=== PATIENT | female | born 1985 | race African-American/Black ===

== ENCOUNTER 2018-08-15 06:54 | Observation (INO) | payer MEDICAID, OTHER ==
[~2018-08-15] VITALS: Ht 170.2 cm; Wt 79.4 kg
[2018-08-15] MEDS ORDERED: PNV1TABL50 MT (07:03)
[2018-08-15] MEDS ORDERED: LACTATED RINGERS 1,000 ML IV SCH (08:00)
[2018-08-15] MEDS ORDERED: CEFAZOLIN 2,000 MG in DEXT 5% WATER 100 ML IV NR (08:30)
[2018-08-15 08:35] LABS: CLARITY URINE TURBID (CLEAR); COLOR URINE YELLOW (YELLOW); KETONES URINE NEGATIVE (NEGATIVE); LEUKOCYTE ESTERASE URINE 3+ (NEGATIVE); NITRITE URINE NEGATIVE (NEGATIVE); OCCULT BLOOD URINE TRACE (NEGATIVE); PROTEIN URINE 1+ (NEGATIVE); SPECIFIC GRAVITY URINE 1.019 (1.005-1.030); UROBILINOGEN URINE 0.2 E.U./dL (0.2-1.0)
[2018-08-15] MEDS ORDERED: TERBUTALINE SULFATE 1MG/ML VIAL SUBCUT PRN (09:00)
== END 2018-08-15 09:30 | disposition home or self-care (01) ==
LOC: 8 EST LDRP 06:54
PROVIDERS: ADMIT Obstetrics & Gynecology; ATTEND Obstetrics & Gynecology
DX: O26.893 Other specified pregnancy related conditions, third trimester (principal); R10.30 Lower abdominal pain, unspecified; Z3A.32 32 weeks gestation of pregnancy
CPT/HCPCS: 81003; 87086; 96365; 99281; G0378; J0690; J7060; 96360; 96361

== ENCOUNTER 2018-10-01 07:26 | Inpatient (IN) | payer OTHER ==
[~2018-10-01] VITALS: Ht 170.2 cm; Wt 79.4 kg
[~2018-10-01 07:26] MED LIST: PNV1TABL50 MT
[2018-10-01] MEDS ORDERED: DEXT 5%/LR + PITOCIN 20UNITS/L 1,000 ML IV SCH ×2 (07:31→11:28)
[2018-10-01] MEDS ORDERED: NALOXONE HCL 0.4 MG/ML 1ML VIAL IM PRN (07:45)
[2018-10-01] MEDS ORDERED: LIDOCAINE HCL 1% 20ML VIAL (Pyxis) INJ INFIL PRN (07:45)
[2018-10-01] MEDS ORDERED: MISOPROSTOL 100MCG TABLET VG PRN (07:45)
[2018-10-01] MEDS ORDERED: BUTORPHANOL TARTRATE 2 MG/ML VIAL IV PRN (07:45)
[2018-10-01] MEDS ORDERED: METHYLERGONOVINE MALEATE 0.2 MG/ML IM PRN (07:45)
[2018-10-01 08:18] LABS: BASOPHILS % 0.5 % (0.0-2.0); EOSINOPHILS % 0.2 % (0.0-5.0); HEMATOCRIT. 34.4 % (36.0-48.0); HEMOGLOBIN. 11.5 g/dL (12.0-16.0); LYMPHOCYTES % 10.6 % (20.0-50.0); MEAN CORPUSCULAR HEMOGLOBIN 32.7 pg (28.0-32.0); MEAN CORPUSCULAR VOLUME 97.9 fL (81.0-99.0); MEAN PLATELET VOLUME 9.3 fl (7.4-10.4); MONOCYTES % 6.7 % (2.0-8.0); PLATELET 289 x1000/uL (130-400); RED BLOOD CELL COUNT 3.51 mill/uL (4.2-5.4); RED CELL DISTRIBUTION WIDTH 13.4 % (11.6-14.6)
[2018-10-01 08:21] LABS: CHLORIDE 108 mEq/L (98-107)
[2018-10-01 08:24] LABS: INR 0.9; PARTIAL THROMBOPLASTIN TIME 25.3 sec (23.4-31.0); PROTHROMBIN TIME 9.1 sec (9.6-11.0)
[2018-10-01 08:28] LABS: CLARITY URINE CLOUDY (CLEAR); COLOR URINE YELLOW (YELLOW); KETONES URINE NEGATIVE (NEGATIVE); LEUKOCYTE ESTERASE URINE 3+ (NEGATIVE); NITRITE URINE NEGATIVE (NEGATIVE); OCCULT BLOOD URINE 2+ (NEGATIVE); PH URINE 7.5 (4.5-8.0); PROTEIN URINE NEGATIVE (NEGATIVE); SPECIFIC GRAVITY URINE 1.012 (1.005-1.030); UROBILINOGEN URINE 0.2 E.U./dL (0.2-1.0)
[2018-10-01] MEDS ORDERED: PENICILLIN G POTASSIUM 5 MMU in DEXT 5% WATER 100 ML IV SCH (09:00)
[2018-10-01] MEDS ORDERED: MORPHINE SULFATE/PF 1MG/ML 10ML AMP EPI SCH (09:00)
[2018-10-01 09:20] LABS: *BARBITURATES SCREEN URINE NEGATIVE (NEGATIVE); *BENZODIAZEPINES SCREEN URINE NEGATIVE (NEGATIVE); *COCAINE SCREEN URINE NEGATIVE (NEGATIVE)
[2018-10-01 09:21] LABS: METHADONE URINE SCREEN NEGATIVE (NEGATIVE); OPIATES URINE SCREEN NEGATIVE (NEGATIVE); PHENCYCLIDINE URINE SCREEN NEGATIVE (NEGATIVE)
[2018-10-01 09:23] LABS: *AMPHETAMINES SCREEN URINE NEGATIVE (NEGATIVE)
[2018-10-01 09:59] LABS: CANNABINOID URINE SCREEN PRESUMTIVE POSITIVE (NEGATIVE)
[2018-10-01 10:02] LABS: BG BASE EXCESS -9.5 mmol/L (-2.0-2.0); BG FRACTION INSPIRED OXYGEN 21; BG HCO3 ACT 18.2 mmol/L (22.0-26.0); BG OXYGEN SATURATION 54.3 % (92.0-98.5); BG PCO2 46.2 mmHg (35.0-45.0); BG PH 7.214 (7.350-7.450); BG PO2 34.3 mmHg (75.0-100.0); BG SAMPLE SITE LEFT RADIAL; BG VENT MODE ROOM AIR
[2018-10-01] MEDS ORDERED: MEPERIDINE HCL/PF 25MG/ML CPJ IV PRN (11:00)
[2018-10-01] MEDS ORDERED: ONDANSETRON HCL 4MG/2ML INJ IV PRN ×2 (11:00→11:30)
[2018-10-01] MEDS ORDERED: HYDROMORPHONE HCL/PF 2MG/ML CPJ IV PRN (11:00)
[2018-10-01 11:26] LABS: HEPATITIS B SURFACE ANTIGEN NEGATIVE
[2018-10-01] MEDS ORDERED: BISACODYL 10MG SUPP PR PRN (11:30)
[2018-10-01] MEDS ORDERED: LANOLIN OINT 0.25 GM TUBE TOP PRN (11:30)
[2018-10-01] MEDS ORDERED: IBUPROFEN 400MG TABLET PO PRN (11:30)
[2018-10-01] MEDS ORDERED: RHO(D) IMMUNE GLOBULIN 300 MCG/SYR IM PRN (11:30)
[2018-10-01] MEDS ORDERED: PENICILLIN G POTASSIUM 2.5 MMU in DEXTROSE 5% WATER 50 ML IV SCH (13:00)
[2018-10-01 13:05] VITALS: BP 104/62
[2018-10-01] MEDS ORDERED: KETOROLAC 30MG/ML VIAL IV PRN (13:15)
[2018-10-01 13:35] VITALS: BP 98/58
[2018-10-01 14:06] VITALS: BP 116/50
[2018-10-01] MEDS ORDERED: FENTANYL CITRATE/PF 50MCG/ML 2ML VIAL ONE (14:36)
[2018-10-01 19:40] VITALS: BP 113/57
[2018-10-01] MEDS ORDERED: MORPHINE SULFATE 4 MG/ML CPJ (NOT FOR IM USE) IV PRN (21:45)
[2018-10-01 22:40] VITALS: BP 116/65
[2018-10-02 02:06] VITALS: BP 111/60
[2018-10-02] MEDS: KETOROLAC 30MG/ML VIAL IV PRN ×2 (02:13→09:21)
[2018-10-02 05:00] VITALS: BP 112/65
[2018-10-02 07:18] LABS: BASOPHILS % 0.3 % (0.0-2.0); EOSINOPHILS % 0.1 % (0.0-5.0); HEMATOCRIT. 25.7 % (36.0-48.0); HEMOGLOBIN. 8.7 g/dL (12.0-16.0); LYMPHOCYTES % 8.6 % (20.0-50.0); MEAN CORPUSCULAR HEMOGLOBIN 33.2 pg (28.0-32.0); MEAN CORPUSCULAR VOLUME 97.7 fL (81.0-99.0); MEAN PLATELET VOLUME 8.8 fl (7.4-10.4); MONOCYTES % 5.8 % (2.0-8.0); NEUTROPHILS % 85.2 % (40.0-76.0); PLATELET 248 x1000/uL (130-400); RED BLOOD CELL COUNT 2.63 mill/uL (4.2-5.4); RED CELL DISTRIBUTION WIDTH 13.6 % (11.6-14.6)
[2018-10-02 09:00] VITALS: BP 111/70
[2018-10-02] MEDS: PRENATAL VIT/FE FUMARATE/FA TABLET PO SCH (09:00)
[2018-10-02] MEDS: IBUPROFEN 800MG TABLET PO PRN ×2 (14:13→20:23)
[2018-10-02 16:26] VITALS: BP 124/68
[2018-10-02 20:20] VITALS: BP 121/67
[2018-10-03] MEDS: HYDROCODONE/ACETAMINOPHEN 5/325MG TABLET PO PRN ×4 (00:21→15:30)
[2018-10-03 04:10] VITALS: BP 128/62
[2018-10-03 08:00] VITALS: BP 109/66
[2018-10-03] MEDS: PRENATAL VIT/FE FUMARATE/FA TABLET PO SCH (10:26)
[2018-10-06 13:10] LABS: CANNABINOID CONFIRMATION URINE Positive (.)
== END 2018-10-03 16:00 | disposition home or self-care (01) | DRG 540 ==
LOC: UNDOADMOB 07:26 → 8 EST LDRP 07:26 → PREOBSVTOIN 07:29 → 8EST NSY 07:30 → 8 EST LDRP 07:53 → 8EST 12:40
PROVIDERS: ADMIT Obstetrics & Gynecology; ATTEND Obstetrics & Gynecology
PROC: 10D00Z1 Extraction of Products of Conception, Low, Open Approach (ICD-10-PCS; principal; 2018-10-01)
DX: O76 Abnormality in fetal heart rate and rhythm complicating labor and delivery (principal); D62 Acute posthemorrhagic anemia; O99.03 Anemia complicating the puerperium; Z3A.38 38 weeks gestation of pregnancy; Z91.040 Latex allergy status; Z37.0 Single live birth
CPT/HCPCS: 36415; 36600; 80305; 80349; 82805; 86592; 86703; 86762; 86850; 86900; 86920; 87340; 88307; 99281; J0595; J1885; J2270; J2274; J2540; J3010; J7060

== ENCOUNTER 2020-01-25 10:30 | Observation (INO) | payer OTHER ==
[~2020-01-25] VITALS: Ht 170.2 cm; Wt 77.1 kg
[2020-01-25] MEDS ORDERED: FERR325T6 PO (11:20)
[2020-01-25] MEDS ORDERED: CALC600T12 MT (11:31)
== END 2020-01-25 12:15 | disposition home or self-care (01) ==
LOC: 8 EST A/PP 10:30
PROVIDERS: ADMIT Obstetrics & Gynecology; ATTEND Obstetrics & Gynecology
DX: O42.912 Preterm premature rupture of membranes, unspecified as to length of time between rupture and onset of labor, second trimester (principal); Z3A.27 27 weeks gestation of pregnancy
CPT/HCPCS: 81002; 99281; G0378

== ENCOUNTER 2020-02-11 15:17 | Observation (INO) | payer MEDICAID, OTHER ==
[~2020-02-11] VITALS: Ht 170.2 cm; Wt 79.4 kg
[~2020-02-11 15:17] MED LIST changes: +CALC600T12 MT; +FERR325T6 PO
== END 2020-02-11 16:25 | disposition home or self-care (01) ==
LOC: 8 EST LDRP 15:17
PROVIDERS: ADMIT Specialist; ATTEND Specialist
DX: O34.63 Maternal care for abnormality of vagina, third trimester (principal); Z3A.29 29 weeks gestation of pregnancy
CPT/HCPCS: 59025; G0378; 99281

== ENCOUNTER 2021-12-24 19:03 | Emergency (ER) | payer MEDICAID, OTHER ==
[~2021-12-24] VITALS: Ht 170.2 cm; Wt 74.0 kg
[~2021-12-24 19:03] MED LIST changes: +CALC-1139 MT; -CALC600T12 MT
[2021-12-24 19:32] VITALS: BP 96/54
== END 2021-12-24 23:00 | disposition left against medical advice (07) ==
LOC: ER 19:03
DX: Z53.21 Procedure and treatment not carried out due to patient leaving prior to being seen by health care provider (principal)
CPT/HCPCS: 93005